=== PATIENT | male | born 1995 | race American Indian/Alaskan Native ===

== ENCOUNTER 2017-12-20 08:58 | Emergency (ER) | payer OTHER ==
--- NOTE | 2017-12-20 09:35 | Emergency Department Report ---
ED Laceration HPI - HPI Chief Complaint: Wound/Laceration Stated Complaint: BUSTED FINGER RIGHT Time Seen by Provider: 12/20/17 09:23 Occurred When: Yesterday Location: Upper Extremity (right middle finger) Severity: moderate Tetanus Status: Not up to Date Laceration Symptoms: Yes Pain (6/10, aching and throbbing), No Foreign Body Sensation, No Numbness, No Weakness Other History: Patient he reported that he cut his right middle finger yesterday when a toilet fell on it while he was at work. He reported laceration. Denies any bleeding. He said he applied pressure to side. Tetanus vaccination is not up-to-date. No pain medication taken pain is worse with movements and no alleviating factors. Denies any restriction of movement to right hand or fingers. ED Review of Systems ROS: Stated complaint: BUSTED FINGER RIGHT Other details as noted in HPI Constitutional: denies: chills, fever Respiratory: denies: cough, shortness of breath, SOB with exertion, SOB at rest , stridor, wheezing Cardiovascular: denies: chest pain, palpitations, edema, syncope Gastrointestinal: denies: nausea, vomiting Musculoskeletal: back pain, joint swelling (middle finger), arthralgia (right middle finger) Skin: other (open wound). denies: rash, lesions Neurological: denies: numbness, paresthesias ED Past Medical Hx - Past Medical History Previous Medical History?: No - Surgical History Past Surgical History?: No - Family History Family history: hypertension - Social History Smoking Status: Current Every Day Smoker Substance Use Type: None - Medications Home Medications: Home Medications Medication Instructions Recorded Confirmed Last Taken Type Cephalexin [Keflex] 500 mg PO Q8HR 10 Days #30 cap 12/20/17 Unknown Rx Ibuprofen [Motrin] 800 mg PO Q8HR PRN #15 tablet 12/20/17 Unknown Rx Laceration Physical Exam - Exam General: Vital signs noted. No distress. Alert and acting appropriately. This is a 22-year-old male well-nourished well-developed in no acute distress. Wound Length (cm): 2 (superficial and linear) Laceration Location: Upper Extremity (right middle finger) Full Body Front + Back: 1 - Right finger with 2 cm superficial, linear laceration. Tender to palpate, minimal crusting noted around the edges. No bleeding noted. No signs of infection. No restriction in movement of fingers. Positive swelling. Delayed treatment Laceration Exam: Yes Normal Distal CMS (patient wants with good color and position movement and temperature to extremities. +2 radial and ulnar pulses. No neurovascular compromise), No Foreign Body ED Course Vital Signs 12/20/17 09:03 Temperature 98.1 F Pulse Rate 66 Respiratory 16 Rate Blood Pressure 125/73 O2 Sat by Pulse 100 Oximetry - Reevaluation(s) Reevaluation #1: 12/20/17 10:41 Patient given Boostrix 0.5 mL to update tetanus. Keflex started. Finger wound cleansed with saline, irrigated with 250 mL of normal saline, iodine and saline. We will discharge her simply cystitis. ED Medical Decision Making - Radiology Data Radiology results: report reviewed Patient had x-ray of right middle finger that was dictated by radiologist's report reviewed by myself and soft tissue injury without any fracture or dislocation seen. Patient: REHAN ALY MR#: [id number] : 1995 Acct:[id number] Age/Sex: 22 / M ADM Date: 12/20/17 Loc: ED Attending Dr: Ordering Physician: ELISABETH BENNETT Date of Service: 12/20/17 Procedure(s): XR finger(s) 2+V RT Accession Number(s): [id number] cc: ELISABETH BENNETT Fluoro Time In Minutes: RIGHT FINGERS, 3 VIEWS History: Right third finger pain Findings: There appears to be a soft tissue laceration along the lateral surface of the third digit. No radiopaque foreign body, bony injury or joint pathology is identified. Impression: Soft tissue injury. Transcribed By: TTR Dictated By: NICOLÁS FREEMAN JR, MD Electronically Authenticated By: NICOLÁS FREEMAN JR, MD Signed Date/Time: 12/20/17956 DD/ 5 TD/TT: 12/20/17956 - Medical Decision Making This is a 22-year-old male presented to the emergency room with right middle finger wound is greater than 16 hours old. He said he injured his finger when object fell on it and he sustained a wound. His reported pain and swelling to right middle finger. Tetanus shot is not up-to-date and is here for treatment. Patient was seen and examined by myself.No cce. + 2 pulses in all extremities, no neurovascular compromise. No restriction in movement to right middle finger. He has swelling with 2 cm open wound. No signs of infection noted. Tender to palpate no signs of tendon injury. Patient with laceration to right middle finger with delayed treatment. He was started on Keflex 500 mg by mouth. Tetanus vaccine is updated. Wound care done. Patient instructed to follow up with his primary care physician in 3-4 days if he did not have a primary care physician to follow-up at [facility] status post wound. A/P Laceration right middle finger with delayed treatment-patient started on Keflex 500 mg by mouth and will be discharged home and Keflex. Wound care. Wound irrigated with normal saline, iodine and cleansed with normal saline. Neosporin ointment and place and bulky dry dressing in place. 60.5 mL emergency room. Arthralgia right middle finger secondary to injury-patient will be sent home on Motrin Instructions given on wound care, medication, treatment plan and diagnosis. He was not distended Patient discharged home in stable condition with his family with a prescription for Motrin, Keflex. Vital signs are stable is a febrile. He understands that he needs to follow up with his primary care physician in 3-4 days and/or to return to the emergency room if he developed increased redness, swelling drainage, fever and/or restriction of movement to right hand and fingers. - Differential Diagnosis finger affects close versus open, contusion, sprain, MSK pain Critical care attestation.: If time is entered above; I have spent that time in minutes in the direct care of this critically ill patient, excluding procedure time. ED Disposition Clinical Impression: Arthralgia of hand, right Laceration of middle finger with delay in treatment Qualifiers: Encounter type: initial encounter Qualified Code(s): S61.218A - Laceration without foreign body of other finger without damage to nail, initial encounter Disposition: DC-01 TO HOME OR SELFCARE Is pt being admited?: No Does the pt Need Aspirin: No Condition: Stable Instructions: Finger Laceration (ED), Acute Wound Care (ED), Arthralgia (ED) Additional Instructions: Please see discharge instruction in acute wound care return to emergency room in 4 days for removal of packing Keep affected area clean and dry Motrin for pain and please take medication with food to prevent nausea or irritation to stomach lining Take to Keflex as instructed Return to the emergency room if, he developed fever, chills, increased pain and drainage from site, nausea and vomited, increase in redness and/or weakness. Referrals: PRIMARY CARE, [Primary Care Provider] - 3-5 Days [facility] [Outside] - 3-5 Days Forms: Work/School Release Form(ED)
[2017-12-20] MEDS ORDERED: KEFLEX PO ONE (09:36)
[2017-12-20] MEDS ORDERED: BOOSTRIX IM ONE (09:36)
[2017-12-20] MEDS ORDERED: TRIPLE ANTIBIOTIC TP ONE (09:44)
--- NOTE | 2017-12-20 10:04 | XRay Report ---
RIGHT FINGERS, 3 VIEWS History: Right third finger pain Findings: There appears to be a soft tissue laceration along the lateral surface of the third digit. No radiopaque foreign body, bony injury or joint pathology is identified. Impression: Soft tissue injury.
[2017-12-20 11:02] VITALS: BP 130/71
== END 2017-12-20 11:00 | disposition home or self-care (01) ==
LOC: ED 08:58
DX: S61.212A Laceration without foreign body of right middle finger without damage to nail, initial encounter (principal); F17.200 Nicotine dependence, unspecified, uncomplicated; W26.8XXA Contact with other sharp object(s), not elsewhere classified, initial encounter; Y93.89 Activity, other specified; Y92.69 Other specified industrial and construction area as the place of occurrence of the external cause; Y99.0 Civilian activity done for income or pay
CPT/HCPCS: 90471; 90715; 99283; A6250